=== PATIENT | female | born 2000 | race Caucasian/White ===

== ENCOUNTER → 2021-02-19 | Outpatient (CLI) | payer BC ==
[~2021-02-19] MED LIST: NORCO 7.5-3251 EACH PO; ZOFRAN ODT 4 MG4 MG PO
== END ==
LOC: DTC 09:14
DX: Z71.3 Dietary counseling and surveillance (principal); E66.01 Morbid (severe) obesity due to excess calories; E28.2 Polycystic ovarian syndrome

== ENCOUNTER 2021-07-31 17:25 | Emergency (ER) | payer BC ==
[2021-07-31 18:23] LABS: HEMOGLOBIN 14.2 gm/dl (12.3-15.3); RED BLOOD COUNT 4.81 M/UL (4.00-5.10); WHITE BLOOD COUNT 9.7 K/UL (4.5-11.0)
[2021-07-31 18:51] LABS: BUN/CREATININE RATIO 21 (0-10)
[2021-07-31] MEDS ORDERED: LOPRESSOR 25 MG25 MG PO (22:05)
[2021-07-31] MEDS ORDERED: IMITREX25 MG PO (22:05)
== END 2021-07-31 22:26 | disposition home or self-care (01) ==
LOC: ER1 17:25
DX: I10 Essential (primary) hypertension (principal); R00.0 Tachycardia, unspecified; R51.9 Headache, unspecified
CPT/HCPCS: 71045; 80053; 82550; 82553; 84484; 85025; 93005; 99285